=== PATIENT | male | born 1980 | race Caucasian/White ===

== ENCOUNTER 2024-12-15 19:47 | Emergency (ER) | payer BC, SELFPAY ==
[2024-12-15 19:49] VITALS: BP 138/83; PULSE 107; RESP 16; TEMP 37.1; O2SAT 98; BMI 36.6
[2024-12-15] MEDS: Lidocaine 1% (20 ml mdv) 20 ML Vial INFILT (20:27)
[2024-12-15 22:15] LABS: Hematocrit 45.4 % (40-54); Hemoglobin 15.1 g/dL (13.0-16.5); Immature Granulocytes Count 0.100 X10^3/uL (0.0-0.0); Mean Corp Hgb Conc 33.3 g/dL (32-36); Mean Corpuscular Volume 91.9 fL (80-94); Mean Platelet Vol. 12.5 fl (6.2-12.0); NRBC Flagged by Analyzer 0 % (0-5); Platelet Count 220 K/mm3 (150-450); RBC Distribution Width CV 12.8 % (11.6-14.6); RBC Distribution Width SD 43.2 fl (35.1-43.9); Red Blood Count 4.94 M/mm3 (4.6-6.2); White Blood Count 16.5 K/mm3 (4.4-11.0)
[2024-12-15 22:27] LABS: Anion Gap 13 (5-15); BUN 18 mg/dL (4-19); BUN/Creat Ratio 19.5 RATIO (10-20); Calcium,Total 9.9 mg/dL (7.6-11.0); Carbon Dioxide 24.8 mmol/L (21.0-32.0); Chloride 103 mmol/L (98-108); Estimated Creatinine Clearance 140.36 ml/min (50-250); Glucose 106 mg/dL (70-99); Potassium 4.2 mmol/L (3.3-5.1)
--- NOTE | 2024-12-15 22:30 | EX.ED.DYSGE1 ---
HPI History of Present Illness Chief Complaint: Abscess Detail of Chief Complaint: Patient with abscess left upper back Informant: patient Onset/Context/Timing Onset: Days (Redness for the past couple of days with swelling and pain) Context: Sudden Onset (The redness and pain is new the swelling has been present for 5 years) Timing: Continuous Quality: Pain Location: Posterior upper left back Current Severity: Mild Maximum Severity: Moderate Worsened by: Palpation Relieved by: Nothing Associated Symptoms Associated Symptoms: No documented fever. No shaking chills. Narrative Narrative: Patient is a 44-year-old male. He denies history of diabetes and is on no medication. He denies any allergies to antibiotics. He presents because of a lump that has become red painful and more swollen. This was noted approximately 5 years ago. outlined the area of redness with a pen. Patient denies headache, visual, ocular auditory symptoms. Patient denies his rheumatic fever, heart murmur or mitral valve prolapse. Patient denies polyuria or polydipsia. He denies myalgias or arthralgias. He denies pain in his right shoulder joint. Prior similar symptoms: No Recent Illness/Hospitalization: No PFSH PFS Home Medications ?Medication ?Instructions ?Recorded ?Last Taken ?Type cephalexin 500 mg capsule 500 mg PO Q6 #28 CAPSULES 12/15/24 Unknown Rx sulfamethoxazole 800 1 tab PO BID #14 TABLETS 12/15/24 Unknown Rx mg-trimethoprim 160 mg tablet Allergy/AdvReac Type Severity Reaction Status Date / Time No Known Allergies Allergy Verified 12/15/24 19:49 Family History no significant family his Surgical History History of tonsillectomy and adenoidectomy Social History Smoking Status: Former smoker ROS ROS ED Constitutional Constitutional ED: Denies chills, fever(s), subjective or sweats Cardiovascular Cardiovascular: Denies chest pain or palpitations Respiratory/Chest Respiratory/Chest: Denies cough, dyspnea or dyspnea on exertion Gastrointestinal Gastrointestinal: Denies nausea or vomiting Integumentary Reports abscess and rash Neurologic Neurologic: Denies weakness Hematologic/Lymphatic Hematologic/Lymphatic: Reports systems reviewed and no addt'l complaints, except as documented EXAM Physical Exam Const Vital Signs: 12/15/24 19:49 Temperature 98.7 F Temperature Source Oral Pulse Rate 107 H Respiratory Rate 16 Blood Pressure 138/83 H Blood Pressure Mean 101 Pulse Ox 98 Oxygen Delivery Method Room Air Positive well nourished and well developed General Appearance ED: well developed and NAD; Negative for pallor HEENT Reports moist mucous membranes HEENT Narrative: Head is atraumatic and normocephalic. Ears are normal. Posterior pharynx is normal. Eyes PERRL and EOMs intact bilaterally General Eye ED: Negative for pale conjunctiva or scleral icterus Neck no lymphadenopathy, supple and no JVD Chest Wall inspection of chest normal and palpation of chest normal Resp normal respiratory effort and clear to auscultation bilaterally Cardio regular rhythm, S1 normal heart sound, S2 normal heart sound and no murmurs Rate: tachycardic Extremity normal to inspection General Extremety ED: Negative for edema or tenderness General Extremity: Negative for edema Neuro oriented x3 and CN's II-XII intact bilaterally Sensorium / Orientation: alert Psych mental status grossly normal Skin No no rashes or lesions noted and skin turgor normal General Skin Exam: elasticity normal; Negative for jaundice or pallor MDM MDM MDM Narrative Medical decision making narrative: Suspect patient has an infected sebaceous cyst with overlying pustules and cellulitis that are concerning for MRSA. Because patient is tachycardic will pain white count and electrolyte panel to assess glucose anion gap and renal function. Procedure note: Patient was prepped in a sterile manner. The area was Nestabs by local infiltration and field block. Linear incision was made there was 2 cm in length with a 10 blade. There was purulent and cottage cheese appearing material that freely flowed from the cavity. Blunt dissection was undertaken with more purulent and cottage cheeselike material. Cavity was irrigated with the 150 cc of normal saline. A wick was placed to prevent the wound from closing down. Patient received first dose of cephalexin and trimethoprim/sulfamethoxazole in the emergency department. He was discharged with a 7-day supply of both. Lab Data Attestation: I reviewed the patient's lab results. Lab results narrative: White count is elevated 16.5 thousand with a slight shift. H&H is normal. Electrolyte panel is unremarkable. Labs: Laboratory Results - last 24 hr 12/15/24 12/15/24 12/15/24 21:00 21:00 21:53 WBC Cancelled 16.5 H Corrected WBC Cancelled RBC Cancelled 4.94 Hgb Cancelled 15.1 Hct Cancelled 45.4 MCV Cancelled 91.9 MCH Cancelled 30.6 MCHC Cancelled 33.3 RDW Std Deviation Cancelled 43.2 RDW Coeff of Rosibel Cancelled 12.8 Plt Count Cancelled 220 MPV Cancelled 12.5 H Immature Gran % (Auto) Cancelled 0.600 Neut % (Auto) Cancelled 78.3 H Lymph % (Auto) Cancelled 11.2 L [place] % (Auto) Cancelled 7.2 Eos % (Auto) Cancelled 2.2 Baso % (Auto) Cancelled 0.5 Absolute Neuts (auto) Cancelled 12.9 H Absolute Lymphs (auto) Cancelled 1.84 Total Counted Cancelled Neutrophils % (Manual) Cancelled Band Neutrophils % Cancelled Lymphocytes % (Manual) Cancelled Monocytes % (Manual) Cancelled Eosinophils % (Manual) Cancelled Basophils % (Manual) Cancelled Metamyelocytes % Cancelled Myelocytes % Cancelled Promyelocytes % Cancelled Blast Cells % Cancelled Plasma Cell % (Manual) Cancelled Other Cells % Cancelled Nucleated RBC % Cancelled 0 Nucleated RBCs/100 WBC Cancelled Differential Comment Cancelled Diff Path Review Cancelled Hypersegmented Neuts Cancelled Atypical Lymphocytes Cancelled Reactive Lymphocytes Cancelled Smudge Cells Cancelled Toxic Granulation Cancelled Toxic Vacuolation Cancelled Dohle Bodies Cancelled Darell Rods Cancelled Platelet Estimate Cancelled Plt Morphology Comment Cancelled RBC Morphology Cancelled Cancelled Polychromasia Cancelled Hypochromasia Cancelled Basophilic Stippling Cancelled Anisocytosis Cancelled Microcytosis Cancelled Macrocytosis Cancelled Spherocytes Cancelled Sickle Cells Cancelled Target Cells Cancelled Tear Drop Cells Cancelled Ovalocytes Cancelled Stomatocytes Cancelled [place] Bodies Cancelled [place] Cells Cancelled Bite Cells Cancelled Crenated Cell Cancelled Acanthocytes (Spur) Cancelled Rouleaux Cancelled Schistocytes Cancelled Sodium 141 Potassium 4.2 Chloride 103 Carbon Dioxide 24.8 Anion Gap 13 BUN 18 Creatinine 0.90 Estim Creat Clear Calc 140.36 Est GFR (MDRD) Non-Af 109 BUN/Creatinine Ratio 19.5 Glucose 106 H Calcium 9.9 Treatment and Re-Evaluation :: My opinion patient is a candidate for outpatient therapy since this is infected sebaceous cyst with surrounding cellulitis is less than 5 cm in size. Procedures Other Procedures Procedure(s): I&D infected sebaceous cyst/abscess with surrounding cellulitis Discharge Plan Triage Chief Complaint: Abscess ED Provider: Ab Vernon Dx/Rx/DC Orders Clinical Impression: Infected sebaceous cyst, Cellulitis of back, Leukocytosis, Sinus tachycardia seen on enrichment specialist, Elevated blood-pressure reading without diagnosis of hypertension Instructions: ED Abscess Incision And Drainage, ED Cellulitis Prescriptions: New sulfamethoxazole-trimethoprim 800-160 mg tablet 1 tab PO BID Qty: 14 0RF cephalexin 500 mg capsule 500 mg PO Q6 Qty: 28 0RF Primary Care Provider: Care Physician,No Primary Referrals: Care Physician,No Primary [Primary Care Provider] - Activity Restrictions/Additional Instructions: You will need to have your wound check in 2 days. The wick should be removed at that time. If you develop temperature greater than 100.5 and have shaking chills return to the emergency department. Take antibiotics until gone Print Language: Albanian Disposition Disposition: Home, Self Care
[2024-12-15] MEDS: Smz/Tmp Ds Tablet 1 TABLET PO (22:40)
[2024-12-15 22:49] VITALS: BP 148/113; PULSE 99; RESP 18; TEMP 37.1; O2SAT 95
== END 2024-12-15 22:50 | disposition home or self-care (01) ==
PROVIDERS: Emergency Provider Emergency Medicine; Visit Provider Emergency Medicine
DX: L03.312 Cellulitis of back [any part except buttock and flank] (principal); L72.3 Sebaceous cyst; Z87.891 Personal history of nicotine dependence; R00.0 Tachycardia, unspecified; R03.0 Elevated blood-pressure reading, without diagnosis of hypertension
CPT/HCPCS: 10060; 36415; 80048; 85025; 87070; 87205; 99283; A4216